=== PATIENT | male | born 1960 | race African-American/Black ===

== ENCOUNTER → 2016-11-17 | Outpatient (CLI) | payer BC ==
--- NOTE | 2016-11-20 13:06 | SLEEP ---
DATE OF STUDY: 11/17/2016 ATTENDING PHYSICIAN: Stevie Anderson MD The patient is 56 years old who weighs 245 pounds with a BMI of 31. The patient's Troy score was 12. The patient had a previous sleep study which showed mild LISA with moderate increase during supine sleep. Total AHI was 12 per hour with a supine AHI of 16 per hour and REM AHI of 28 per hour. Due to presence of symptoms, the patient was recommended to have CPAP titration study. Returned to the lab on 11/17/2016, for CPAP titration. During the night of study, the patient spent 416 minutes in bed and slept for 388 minutes with a sleep efficiency of 93%. Sleep latency was 6 minutes with a REM latency of 252 minutes. Overall, sleep architecture showed increased stage I and stage II sleep, absent slow wave and reduced REM sleep. The patient was started on CPAP at 5 cm water and titrated up to 7 cm water. At the final pressure, the patient had 356 minutes of sleep. The patient had supine as well as REM sleep was observed. AHI was reduced to 0 per hour. Oxygen saturation remained above 93%. EKG monitoring revealed normal sinus rhythm, average heart rate was 53 beats per minute. No sustained arrhythmias were observed. PLMS were seen at index of 76 per hour, but none caused EEG arousals. IMPRESSION: 1. Sleep apnea diagnosed by previous sleep study. 2. Severe PLMS at an index of 76 per hour, but none caused EEG arousals. RECOMMENDATIONS: 1. CPAP at 7 cm water completely eliminated patient's sleep apnea and should be used on a nightly basis. 2. Follow up in 4-6 weeks to assess compliance with CPAP and to document clinical improvement. 3. Weight loss is strongly advised. 4. Avoid [employer] depressants. 5. Caution regarding driving until symptoms of sleep apnea resolve with the use of CPAP. 6. The patient should be further evaluated for symptoms of restless legs during the day and if present, it can be treated with dopaminergic agonist agents. JINA BEDOYA MD DR: WOODROW/trang JOB#: [id number] / [id number] STEVIE Pelletier MD
== END | disposition home or self-care (01) ==
LOC: RT 18:57
PROVIDERS: ATTEND Internal Medicine Critical Care Medicine
DX: G47.33 Obstructive sleep apnea (adult) (pediatric) (principal)
CPT/HCPCS: 94660

== ENCOUNTER → 2017-05-20 | Day surgery (SDC) | payer BC ==
[~2017-05-20] VITALS: Ht 188 cm; Wt 111.1 kg
[~2017-05-20] MED LIST: BUPIVACAINE 0.5% 50 ML VIAL. ONE; BUPIVACAINE MPF 0.5% 30 ML VIAL. ONE; DEXAMETHASONE SOD PHOS 20 MG/5 ML VIAL. ONE; DOCU-109 PO; EPINEPHrine 1 MG/ML VIAL ONE; EPINEPHrine VIAL 30 MG/30 ML VIAL ONE; GLYCOPYRROLATE 1 MG/5 ML VIAL. ONE; HYDROmorphone 2 MG/ML VIAL IV PRN; IBUP-1027 PO; IV RINGERS,LACTATED 1000ML 1,000 ML IV SCH; LIDOCAINE 1% 1 ML SYRINGE. ID PRN; LIDOCAINE 1% PF 30 ML VIAL. ONE; LIDOCAINE 2% PF Vial for OR 5 ML VIAL. ONE; MIDAZOLAM HCL/PF 2 MG/2 ML VIAL. ONE; MORPHINE SULFATE 2 MG/ML DISP.SYRIN. IV PRN; NEOSTIGMINE 10 MG/10 ML VIAL. ONE; ONDA4TAB10 SL; ONDANSETRON PF 4 MG/2 ML VIAL. IV PRN; ONDANSETRON PF 4 MG/2 ML VIAL. ONE; PHENYLEPHRINE 10 MG/ML VIAL. ONE; PROCHLORPERAZINE 10 MG/2 ML VIAL. IV PRN; PROPOFOL 20 ML IV ONE; ROCURONIUM 100 MG/10 ML VIAL. ONE; SEVOFLURANE > 120 MINUTES. IH ONE; fentaNYL PF VIAL 100 MCG/2 ML VIAL IV PRN; fentaNYL PF VIAL 100 MCG/2 ML VIAL ONE
--- NOTE | 2017-05-20 08:26 | DISCH ---
DISCHARGE INSTRUCTIONS Condition on Discharge Condition on Discharge: Stable Activity After Discharge Activity Instructions for Disc: Other, see below Other activity instructions: arm to remain in sling Bathing Instructions: Shower-keep dressing dry Weight Bearing Status after Di: Non weight bearing Diet after Discharge Diet after Discharge: Regular Wound Incision Care Wound/Incision Care: Ice to area for comfort, Keep wound/cast CDI, Change dressing Contacting the DR. after DC Call your doctor for: Concerns you may have Follow-Up Follow up with: Deepak in 2wks JIMENEZ VARGAS II, MD May 20, 2017 08:26
--- NOTE | 2017-05-20 08:27 | PDOC ---
BRIEF OPERATIVE NOTE Date: May 20, 2017 Pre-Op Diagnosis R RTC tear, glenohumeral DJD Post-Op Diagnosis same Procedure Performed R shoulder scope, RTC repair Surgeon Deepak Medina Anesthesia Type: General Blood Loss 10mL Complications none JIMENEZ VARGAS II, MD May 20, 2017 08:27
[2017-05-20 15:37] VITALS: BP 153/77
--- NOTE | 2017-05-20 20:25 | OP ---
DATE OF SURGERY: 05/20/2017 SURGEON: Spencer Vargas MD. ANDROID SOFTWARE ENGINEER: Mile Medina. PREOPERATIVE DIAGNOSIS: Large retracted right shoulder rotator cuff tear. POSTOPERATIVE DIAGNOSIS: Supraspinatus and infraspinatus tears retracted to the level of the glenoid. PROCEDURE PERFORMED: Arthroscopic repair of supraspinatus and infraspinatus, rotator cuff. ANESTHESIA: General plus regional nerve block. ESTIMATED BLOOD LOSS: 10 mL. COMPONENTS INSERTED: 1. Murillo and Nephew HEALICOIL suture anchors x 2. 2. Murillo and Nephew footprint for lateral row fixation. FINDINGS: 1. The patient had some grade 1-2 changes at his anterior glenoid as well as scattered throughout his humeral head. He had a large massive retracted rotator cuff tear. 2. He had some longitudinal split in his biceps tendon, but no signs of other biceps pathology. 3. No loose bodies in the glenohumeral joint. 4. Teres minor and subscapularis were intact. REASON FOR PROCEDURE: The patient is a very pleasant gentleman who has had shoulder pain and dysfunction for over a year, who presented to my outpatient orthopedic surgery clinic with complaints of shoulder pain and loss of function. He had tried and failed conservative therapies because of his age and activity level, we had a discussion of the risks, benefits, and alternatives to proceeding with arthroscopic right shoulder rotator cuff repair and possible glenohumeral debridement and he elected to proceed. DESCRIPTION OF PROCEDURE: The patient was greeted in the preoperative area by myself where correct extremity was marked and verified. He was taken back to the operative suite, after anesthesia placed a regional nerve block. His antibiotics were started en route. Once in the OR, he was transferred gently supine to the OR table and had successful induction of general anesthesia. He was set up in a beach chair position and secured to the bed with all pressure points padded and a large pad under his hips and legs. After this, we proceeded to prep and drape his right upper extremity and shoulder girdle in our usual sterile fashion and conducted a standard preoperative timeout. I then palpated and marked the surface anatomy and used the spinal needle to localize the posterosuperior portal and incised skin in accordance with this and then introduced my blunt arthroscopic trocar into the glenohumeral joint followed by the camera. I then used a spinal to localize the anterosuperior portal and incised skin in accordance with this. I dilated this hole and then introduced my probe and then conducted my diagnostic arthroscopy with the above-noted findings. I did debride some fraying around his labrum, but not much. I debrided the leading edge of the tendon. After establishing lateral portal under spinal localization. I then debrided the footprint, taking care not to decorticate. I used an arthroscopic grasper and noted that his rotator cuff had poor mobility, so I spent quite a bit of time with an arthroscopic elevator, shaver and a cautery device to perform my release above and below the tendon, which gave it much better mobility. After this, I placed two HEALICOIL suture anchors then to the rotator cuff footprint. I then passed the posterior to most in a mattress configuration with a simple one between those for a Faustino-Serg type configuration. I passed 2 more simple sutures through the supraspinatus and was able to reapproximate the tendon to the proximal humerus without undue tension. I then cut a limb from each of these and then incorporated one limb from each knot through my footprint device, which I then inserted after creating a starting hole with an awl and putting the sutures under tension. After securing this device and removing the insertion handle, I cut and trimmed the free ends of the suture. I inspected my repair. There was some bunching of the tendon anteriorly, but overall I was happy with the repair and noted no gapping at the bone tendon interface with gentle range of motion. After this, all excess arthroscopic fluid was removed and the portals were then closed with simple interrupted 2-0 nylon. It should be noted that I did use a spinal needle to create an accessory anterolateral and posterolateral portals for suture management as well. After closing the portals, he was awakened from anesthesia and laid gently supine. He was placed into an abduction pillow sling. He was transferred gently supine to the recovery room cart and taken to PACU in a stable and extubated condition. Postop plan is to discharge him home. Nonweightbearing for 6 weeks. We will hold off on PT for 2 weeks until I see him back in my clinic. SPENCER VARGAS MD DR: CALLI/trang JOB#: [id number] / [id number] FRANK
== END | disposition home or self-care (01) ==
LOC: SURG 08:03
PROVIDERS: ATTEND Orthopaedic Surgery Sports Medicine
DX: S46.011A Strain of muscle(s) and tendon(s) of the rotator cuff of right shoulder, initial encounter (principal); Z87.39 Personal history of other diseases of the musculoskeletal system and connective tissue; Z72.89 Other problems related to lifestyle
CPT/HCPCS: 29827; J0171; J1100; J2001; J2250; J2405; J2704; J2710; J3010; J3490

== ENCOUNTER 2019-08-04 04:15 | Emergency (ER) | payer BC, OTHER ==
[~2019-08-04] VITALS: Ht 188 cm; Wt 115.7 kg
[~2019-08-04 04:15] MED LIST changes: -BUPIVACAINE 0.5% 50 ML VIAL. ONE; -BUPIVACAINE MPF 0.5% 30 ML VIAL. ONE; -DEXAMETHASONE SOD PHOS 20 MG/5 ML VIAL. ONE; -EPINEPHrine 1 MG/ML VIAL ONE; -EPINEPHrine VIAL 30 MG/30 ML VIAL ONE; -GLYCOPYRROLATE 1 MG/5 ML VIAL. ONE; -HYDROmorphone 2 MG/ML VIAL IV PRN; -IV RINGERS,LACTATED 1000ML 1,000 ML IV SCH; -LIDOCAINE 1% 1 ML SYRINGE. ID PRN; -LIDOCAINE 1% PF 30 ML VIAL. ONE; -LIDOCAINE 2% PF Vial for OR 5 ML VIAL. ONE; -MIDAZOLAM HCL/PF 2 MG/2 ML VIAL. ONE; -MORPHINE SULFATE 2 MG/ML DISP.SYRIN. IV PRN; -NEOSTIGMINE 10 MG/10 ML VIAL. ONE; -ONDANSETRON PF 4 MG/2 ML VIAL. IV PRN; -ONDANSETRON PF 4 MG/2 ML VIAL. ONE; -PHENYLEPHRINE 10 MG/ML VIAL. ONE; -PROCHLORPERAZINE 10 MG/2 ML VIAL. IV PRN; -PROPOFOL 20 ML IV ONE; -ROCURONIUM 100 MG/10 ML VIAL. ONE; -SEVOFLURANE > 120 MINUTES. IH ONE; -fentaNYL PF VIAL 100 MCG/2 ML VIAL IV PRN; -fentaNYL PF VIAL 100 MCG/2 ML VIAL ONE
--- NOTE | 2019-08-04 04:29 | PHYS DOC ---
Adult General Chief Complaint Chief Complaint: LOWER EXT PAIN HPI HPI 58-year-old male presents to the emergency department with complaints of bilateral lower extremity pain. Patient states pain is been off and on all week. States is worse tonight described as sharp sensation radiation down to his legs. He does have intermittent tingling appreciated. He's had no injury. Denies any nausea, vomiting, shortness of breath. Has complained of some indigestion over the last couple days that comes and goes however nothing currently. Denies any injury. He does have history of back surgery secondary to disc rupture. Nothing makes his pain worse, nothing makes pain better. (DANNY JIANG MD) Review of Systems Review of Systems Constitutional: Denies fever or chills [] Eyes: Denies change in visual acuity, redness, or eye pain [] HENT: Denies nasal congestion or sore throat [] Respiratory: Denies cough or shortness of breath [] Cardiovascular: No additional information not addressed in HPI [] GI: Denies abdominal pain, nausea, vomiting, bloody stools or diarrhea [] Musculoskeletal: Denies back pain or joint pain [] Integument: Denies rash or skin lesions [] Neurologic: Denies headache, focal weakness or sensory changes [] All other systems were reviewed and found to be within normal limits, except as documented in this note. (DANNY JIANG MD) Current Medications Current Medications Current Medications Medications (Trade) Dose Ordered Sig/Susana Start Time Stop Time Status Last Admin Dose Admin Ketorolac Tromethamine (Toradol Im) 60 mg 1X ONCE 08/04/19 04:45 08/04/19 04:46 DC 08/04/19 04:41 60 MG Sodium Chloride 1,000 ml @ 1,000 mls/hr 1X ONCE 08/04/19 05:15 08/04/19 06:14 DC 08/04/19 05:15 1,000 MLS/HR (FERMIN ROJO MD) Allergies Allergies Allergies Coded Allergies Type Severity Reaction Last Updated Verified No Known Medication Allergies Allergy Unknown 05/20/17 No (FERMIN ROJO MD) Physical Exam Physical Exam Constitutional: Well developed, well nourished, mild distress 2/2 pain, non- toxic appearance. [] HENT: Normocephalic, atraumatic, bilateral external ears normal, oropharynx moist, no oral exudates, nose normal. [] Eyes: PERRLA, EOMI, conjunctiva normal, no discharge. [] Neck: Normal range of motion, no tenderness, supple, no stridor. [] Cardiovascular:Heart rate regular rhythm, no murmur [] Lungs & Thorax: Bilateral breath sounds clear to auscultation [] Abdomen: Bowel sounds normal, soft, no tenderness, no masses, no pulsatile masses. [] Skin: Warm, dry, no erythema, no rash. [] Back: No tenderness, no CVA tenderness. [] Extremities: TTP bilateral lower ext (calf), no edema. [] Neurologic: Alert and oriented X 3, no focal deficits noted. [] Psychologic: Affect normal, judgement normal, mood normal. [] (DANNY JIANG MD) Current Patient Data Vital Signs Vital Signs Date Time Temp Pulse Resp B/P (MAP) Pulse Ox O2 Delivery O2 Flow Rate FiO2 08/04/19 04:15 97.7 54 16 166/93 (117) 99 Room Air 97.7 (FERMIN ROJO MD) Lab Values Laboratory Tests Test 08/04/19 04:35 08/04/19 05:12 White Blood Count 4.7 x10^3/uL (4.0-11.0) Red Blood Count 5.13 x10^6/uL (4.30-5.70) Hemoglobin 15.7 g/dL (13.0-17.5) Hematocrit 46.6 % (39.0-53.0) Mean Corpuscular Volume 91 fL (79-100) Mean Corpuscular Hemoglobin 31 pg (25-35) Mean Corpuscular Hemoglobin Concent 34 g/dL (31-37) Red Cell Distribution Width 13.9 % (11.5-14.5) Platelet Count 199 x10^3/uL (140-400) Neutrophils (%) (Auto) 37 % (31-73) Lymphocytes (%) (Auto) 47 % (24-48) Monocytes (%) (Auto) 12 % (0-9) H Eosinophils (%) (Auto) 3 % (0-3) Basophils (%) (Auto) 1 % (0-3) Neutrophils # (Auto) 1.7 x10^3/uL (1.8-7.7) L Lymphocytes # (Auto) 2.2 x10^3/uL (1.0-4.8) Monocytes # (Auto) 0.6 x10^3/uL (0.0-1.1) Eosinophils # (Auto) 0.1 x10^3/uL (0.0-0.7) Basophils # (Auto) 0.0 x10^3/uL (0.0-0.2) Sodium Level 140 mmol/L (136-145) Potassium Level 3.6 mmol/L (3.5-5.1) Chloride Level 104 mmol/L (98-107) Carbon Dioxide Level 28 mmol/L (21-32) Anion Gap 8 (6-14) Blood Urea Nitrogen 11 mg/dL (8-26) Creatinine 1.1 mg/dL (0.7-1.3) Estimated GFR (Cockcroft-Gault) 82.9 BUN/Creatinine Ratio 10 (6-20) Glucose Level 97 mg/dL (70-99) Calcium Level 9.3 mg/dL (8.5-10.1) Total Bilirubin 0.5 mg/dL (0.2-1.0) Aspartate Amino Transferase (AST) 44 U/L (15-37) H Alanine Aminotransferase (ALT) 38 U/L (16-63) Alkaline Phosphatase 91 U/L (46-116) Creatine Kinase 573 U/L (39-308) H Total Protein 7.5 g/dL (6.4-8.2) Albumin 3.4 g/dL (3.4-5.0) Albumin/Globulin Ratio 0.8 (1.0-1.7) L D-Dimer (Jeanette) 1.02 ug/mlFEU (0.00-0.50) H Laboratory Tests 08/04/19 04:35 Laboratory Tests 08/04/19 04:35 (FERMIN ROJO MD) Lab Values Laboratory Tests Test 08/04/19 04:35 08/04/19 05:12 White Blood Count 4.7 x10^3/uL (4.0-11.0) Red Blood Count 5.13 x10^6/uL (4.30-5.70) Hemoglobin 15.7 g/dL (13.0-17.5) Hematocrit 46.6 % (39.0-53.0) Mean Corpuscular Volume 91 fL (79-100) Mean Corpuscular Hemoglobin 31 pg (25-35) Mean Corpuscular Hemoglobin Concent 34 g/dL (31-37) Red Cell Distribution Width 13.9 % (11.5-14.5) Platelet Count 199 x10^3/uL (140-400) Neutrophils (%) (Auto) 37 % (31-73) Lymphocytes (%) (Auto) 47 % (24-48) Monocytes (%) (Auto) 12 % (0-9) H Eosinophils (%) (Auto) 3 % (0-3) Basophils (%) (Auto) 1 % (0-3) Neutrophils # (Auto) 1.7 x10^3/uL (1.8-7.7) L Lymphocytes # (Auto) 2.2 x10^3/uL (1.0-4.8) Monocytes # (Auto) 0.6 x10^3/uL (0.0-1.1) Eosinophils # (Auto) 0.1 x10^3/uL (0.0-0.7) Basophils # (Auto) 0.0 x10^3/uL (0.0-0.2) Sodium Level 140 mmol/L (136-145) Potassium Level 3.6 mmol/L (3.5-5.1) Chloride Level 104 mmol/L (98-107) Carbon Dioxide Level 28 mmol/L (21-32) Anion Gap 8 (6-14) Blood Urea Nitrogen 11 mg/dL (8-26) Creatinine 1.1 mg/dL (0.7-1.3) Estimated GFR (Cockcroft-Gault) 82.9 BUN/Creatinine Ratio 10 (6-20) Glucose Level 97 mg/dL (70-99) Calcium Level 9.3 mg/dL (8.5-10.1) Total Bilirubin 0.5 mg/dL (0.2-1.0) Aspartate Amino Transferase (AST) 44 U/L (15-37) H Alanine Aminotransferase (ALT) 38 U/L (16-63) Alkaline Phosphatase 91 U/L (46-116) Creatine Kinase 573 U/L (39-308) H Total Protein 7.5 g/dL (6.4-8.2) Albumin 3.4 g/dL (3.4-5.0) Albumin/Globulin Ratio 0.8 (1.0-1.7) L D-Dimer (Jeanette) 1.02 ug/mlFEU (0.00-0.50) H Laboratory Tests 08/04/19 04:35 Laboratory Tests 08/04/19 04:35 (DANNY JIANG MD) EKG EKG EKG reveals normal sinus rhythm, normal axis, heart rate 52, no evidence of acute ST elevation MS, nonurgent[] Interpretation Time: Interpretation time 0 4:30 (DANNY JIANG MD) Radiology/Procedures Radiology/Procedures [] (DANNY JIANG MD) Course & Med Decision Making Course & Med Decision Making Pertinent Labs and Imaging studies reviewed. (See chart for details) []58-year-old male presents to the emergency department with complaints of bilateral lower extremity pain. Patient states pain is been off and on all week. States is worse tonight described as sharp sensation radiation down to his legs. He does have intermittent tingling appreciated. He's had no injury. Denies any nausea, vomiting, shortness of breath. Has complained of some indigestion over the last couple days that comes and goes however nothing currently. Denies any injury. He does have history of back surgery secondary to disc rupture. Nothing makes his pain worse, nothing makes pain better. Toradol 60mg IM x 1 Labs reviewed - CBC within nml limits, elevated CPK 560 IVF 1 liter NS EKG reviewed - see interpretation DDImer elevated - minimal edema to bilateral lower ext however venous duplex pending Transfer of care to my colleague Dr. oRjo at 6am. Patient receiving IVF and awaiting doppler if negative ok for discharge home (DANNY JIANG MD) Course & Med Decision Making Patient care transferred to [place] at 0600 following up the results of Doppler study and lower extremity. It was reported negative. Plan to discharge patient home with instruction given by Dr. Jiang. (FERMIN ROJO MD) Dragon Disclaimer Dragon Disclaimer This electronic medical record was generated, in whole or in part, using a voice recognition dictation system. (DANNY JIANG MD) Departure Departure Impression: Primary Impression: Bilateral leg pain Additional Impression: Elevated CPK Disposition: 01 HOME, SELF-CARE Condition: STABLE Referrals: NO PCP (PCP) Patient Instructions: Leg Cramps Additional Instructions: Recommend follow up with PCP 3 - 5 days Return to the ER with worsening symptoms, intractable pain, fever, altered mental status Tylenol/Motrin as needed for pain Elevated CPK (573) - likely source of leg pain, no concern for DVT given normal ddimer Received IVF 1 liter NS Scripts Diclofenac Sodium (DICLOFENAC SODIUM) 50 Mg Tablet.dr 1 TAB PO BID for 5 Days, #10 TAB 1 Refill Prov: DANNY JIANG MD 08/04/19 Problem Qualifiers DANNY JIANG MD Aug 04, 2019 04:29 FERMIN ROJO MD Aug 04, 2019 06:32
[2019-08-04] MEDS ORDERED: KETOROLAC 60 MG/2 ML VIAL. IM ONE (04:45)
[2019-08-04 04:52] LABS: BASO % 1 % (0-3); EOS # 0.1 x10^3/uL (0.0-0.7); EOS % 3 % (0-3); HEMATOCRIT 46.6 % (39.0-53.0); HEMOGLOBIN 15.7 g/dL (13.0-17.5); LYMPH # 2.2 x10^3/uL (1.0-4.8); LYMPH % 47 % (24-48); MEAN CORPUSCULAR HEMOGLOBIN 31 pg (25-35); MEAN CORPUSCULAR HGB CONC 34 g/dL (31-37); MEAN CORPUSCULAR VOLUME 91 fL (79-100); MONO # 0.6 x10^3/uL (0.0-1.1); MONO % 12 % (0-9); NEUT # 1.7 x10^3/uL (1.8-7.7); NEUT % 37 % (31-73); PLATELET COUNT 199 x10^3/uL (140-400); RED BLOOD COUNT 5.13 x10^6/uL (4.30-5.70); RED CELL DISTRIBUTION WIDTH 13.9 % (11.5-14.5); WHITE BLOOD COUNT 4.7 x10^3/uL (4.0-11.0)
[2019-08-04 05:02] LABS: CALCIUM 9.3 mg/dL (8.5-10.1); CREATININE 1.1 mg/dL (0.7-1.3); GFR 82.9; POTASSIUM 3.6 mmol/L (3.5-5.1)
[2019-08-04 05:06] LABS: ALBUMIN 3.4 g/dL (3.4-5.0); ALBUMIN/GLOBULIN RATIO 0.8 (1.0-1.7); TOTAL BILIRUBIN 0.5 mg/dL (0.2-1.0); TOTAL PROTEIN 7.5 g/dL (6.4-8.2)
[2019-08-04] MEDS ORDERED: IV NORMAL SALINE 1000ML BAG 1,000 ML IV ONE (05:15)
[2019-08-04] MEDS ORDERED: DICL50TA4 PO (05:31)
[2019-08-04 05:59] VITALS: BP 129/64
--- NOTE | 2019-08-04 06:52 | RAD ---
Bilateral Lower Extremity Venous Doppler: Reason for examination: Bilateral lower extremity pain, left greater than right. The lower extremity venous systems bilaterally were evaluated from the common femoral and greater saphenous veins distally to the calf veins with grayscale imaging, color-flow imaging and spectral analysis. There is normal blood flow without deep venous thrombosis. There is normal response of the venous systems to compression and augmentation. There are lymph nodes present bilaterally in the the groin. There is a complex fluid collection posterior to the left knee measuring 1.5 x 1.4 x 1.3 cm in greatest dimension consistent with a popliteal cyst. Impression: No deep venous thrombosis in the lower extremity venous systems bilaterally. Probable small left popliteal cyst measuring 1.5 cm in greatest dimension. Lymph nodes bilaterally in the groin. Electronically signed by: Nikki Lora MD (08/04/2019 6:49 AM) [id number]
--- NOTE | 2019-08-04 07:30 | EKG ---
[facility] [address] [place] [address] Test Date: 2019-08-04 Test Time: 04:28:19 Pat Name: VU YOUNG Department: Room: Gender: M Atomic Welder: : 1960 Requested By: DANNY JIANG Order Number: [id number] Reading MD: Measurements Intervals [place] Rate: 52 P: 43 TX: 200 QRS: 77 QRSD: 90 T: 31 QT: 416 QTc: 388 Interpretive Statements SINUS RHYTHM NON SPECIFIC ST-T ABNORMALITY (ELEVATION) OTHERWISE NORMAL ECG No previous ECG available for comparison
== END 2019-08-04 06:35 | disposition home or self-care (01) ==
LOC: ER 04:15
DX: M79.605 Pain in left leg (principal); M79.604 Pain in right leg; R74.8 Abnormal levels of other serum enzymes; R20.2 Paresthesia of skin
CPT/HCPCS: 36415; 80053; 82550; 85025; 85379; 93005; 93970; 96372; 99285; J1885; J7030